=== PATIENT | female | born 1960 | race Caucasian/White ===

== ENCOUNTER → 2020-04-15 | Day surgery (SDC) | payer BC ==
[~2020-04-15] MED LIST: Midazolam 1 MG/ML 2 ML SDV ONE; Propofol 200 MG/20 ML SDV ONE; Sodium Chloride 0.9% 1,000 ML IV SCH; fentaNYL 100 MCG/2 ML SDV ONE
--- NOTE | 2020-04-15 14:22 | OR ---
DATE OF PROCEDURE: 04/15/2020 SURGEON: Brock Ba MD PROCEDURE: Colonoscopy. FINDINGS: Normal colonoscopy. COMPLICATIONS: None. NEON ELECTRICIAN: None. ANESTHESIA: MAC. PREOPERATIVE DIAGNOSIS: Screening colonoscopy. POSTOPERATIVE DIAGNOSIS: Screening colonoscopy. RISKS: Risks, benefits, alternatives, and limitations including, but not limited to infection, bleeding, and perforation were explained to the patient who wished to proceed. PROCEDURE IN DETAIL: The patient was placed in left lateral decubitus position. Digital rectal exam was performed without abnormality. The scope was introduced and advanced atraumatically to the ileocecal valve. The scope was brought back to the ascending, transverse, descending colon, and retroflexed. No evidence of old or new blood. No masses. No polyps. No colitis. No abnormalities on retroflexion. Greater than 10 minutes was spent removing the scope. The patient tolerated the procedure well. Brock Ba MD /[id number]
== END ==
LOC: JP.SDS 07:31
PROVIDERS: ATTEND Surgery
DX: Z12.11 Encounter for screening for malignant neoplasm of colon (principal); Z88.1 Allergy status to other antibiotic agents
CPT/HCPCS: 45378; J2250; J2704; J3010; J7030